=== PATIENT | male | born 1990 | race Caucasian/White ===

== ENCOUNTER 2020-11-03 07:11 | Outpatient (REF) | payer BC, SELFPAY ==
[2020-11-04 09:18] LABS: SARS COV2 IgG Negative (Negative)
== END 2020-11-03 07:12 | disposition home or self-care (01) ==
LOC: HO.LAB 07:11
PROVIDERS: Visit Provider Physician Assistant
DX: Z20.828 Contact with and (suspected) exposure to other viral communicable diseases (principal)
CPT/HCPCS: 86769

== ENCOUNTER 2020-11-10 07:56 | Outpatient (REF) | payer BC, SELFPAY ==
[2020-11-10 08:54] LABS: Estimated Average Glucose 97 mg/dL
[2020-11-10 09:26] LABS: Alanine Aminotransferase 92 U/L (0-40); Albumin Level 4.4 g/dL (3.5-5.0); Alkaline Phosphatase 131 U/L (39-117); Anion Gap 13 (12-20); Aspartate Amino Transferase 44 U/L (5-37); Bilirubin Total 0.5 mg/dL (0.0-1.0); Blood Urea Nitrogen 12 mg/dL (9-16); Calcium 9.2 mg/dL (8.4-10.2); Carbon Dioxide 26 mmol/L (22-29); Chloride 103 mmol/L (96-108); Cholesterol 208 mg/dL; Estimated Glomerular Filt Rate > 60; Glucose Fasting 96 mg/dL (60-99); HDL Cholesterol 36 mg/dL; Potassium 4.3 mmol/l (3.3-5.1); Sodium 138 mmol/L (135-145); Total Protein 7.8 g/dL (6.5-8.0); Triglycerides 627 mg/dL
[2020-11-10 09:46] LABS: TSH reflex Free T4 2.74 mIU/mL (0.32-4.0)
== END 2020-11-10 07:57 | disposition home or self-care (01) ==
LOC: HO.LAB 07:56
PROVIDERS: PCP Physician Assistant; Visit Provider Physician Assistant
DX: E78.5 Hyperlipidemia, unspecified (principal)
CPT/HCPCS: 80053; 80061; 83036; 84443

== ENCOUNTER 2021-09-06 07:08 | Outpatient (REF) | payer BC, SELFPAY ==
[2021-09-06 08:01] LABS: Hematocrit 46.9 % (42-52); Hemoglobin 15.5 g/dl (14.0-18.0); Mean Corpuscular Hemoglobin 27.5 pg (27.0-33.0); Mean Corpuscular Volume 83.2 fL (80-98); Mean Platelet Volume 8.9 fL (9.4-12.4); Platelet Count 353 X10*3/uL (160-400); Red Blood Count 5.64 X10*6/uL (4.60-5.80); Red Cell Distribution Width 12.9 % (11.0-16.0); White Blood Count 8.9 X10*3/uL (4.8-10.8)
[2021-09-06 08:25] LABS: Alanine Aminotransferase 25 U/L (0-40); Albumin Level 4.4 g/dL (3.5-5.0); Alkaline Phosphatase 91 U/L (39-117); Aspartate Amino Transferase 20 U/L (5-37); Bilirubin Direct 0.2 mg/dL (0.0-0.5); Bilirubin Total 0.4 mg/dL (0.0-1.0); Cholesterol 218 mg/dL; HDL Cholesterol 34 mg/dL; LDL Cholesterol Calculated 130 mg/dl; Total Protein 7.7 g/dL (6.5-8.0); Triglycerides 272 mg/dL
[2021-09-06 08:35] LABS: Estimated Average Glucose 94 mg/dL; Hemoglobin A1c % 4.9 %
[2021-09-06 08:49] LABS: TSH reflex Free T4 1.44 uIU/mL (0.32-4.0)
== END 2021-09-06 07:09 | disposition home or self-care (01) ==
LOC: HO.LAB 07:08
PROVIDERS: PCP Physician Assistant; Visit Provider Physician Assistant
DX: E78.1 Pure hyperglyceridemia (principal); R74.8 Abnormal levels of other serum enzymes; I10 Essential (primary) hypertension
CPT/HCPCS: 36415; 80061; 80076; 83036; 84443; 85027

== ENCOUNTER 2025-07-18 07:24 | Outpatient (REF) | payer BC, SELFPAY ==
--- OUTSIDE RECORDS SUMMARY | 2025-07-18 07:27 | XMS_ITS | Clinical Summary ---
Author Organization [facility] Address [address] [place], [place] [id number] Phone Care Team Providers Care Senior Financial Reporting Analyst Name Role Phone Kurtis Vazquez MD Primary Care Provider [phone] Social History Tobacco Use Types Packs/Day Years Used Date Smoking Tobacco: Never Assessed Sex and Gender Information Value Date Recorded Sex Assigned at Not on file Legal Sex Male 9:53 AM EST Gender Identity Not on file Sexual Orientation Not on file Plan of Treatment Not on file Medical Devices Not on file Insurance [address] [place], [place] [id number] [place] [address] HMO POS [place] [address] [place] [address] [place] [address] [place] [address] [place] [address] [place] [address] [place] [place] [address] [place] [address] HMO [facility] Care Teams Senior Financial Reporting Analyst Relationship Specialty Start Date End Date Kurtis Vazquez MD PCP - General Internal Medicine 12/21/17 Additional Source Comments The information contained in this document represents components of the legal health record. It is not the complete legal health record.[facility]
--- OUTSIDE RECORDS SUMMARY | 2025-07-18 07:27 | XMS_ITS | Encounter Summary ---
Author Organization [facility] Address [address] [place] [address] Phone Care Team Providers Care Maintenance Groundman Name Role Phone Saima Lindsay MD Primary Care Provider [phone] Encounter Details Date Type Department Care Team (Late st Contact Info) Description 06/29/2017 Conversion Encounter [facility] [address] [place] [address] Social History Tobacco Use Types Packs/Day Years Used Date Smoking Tobacco: Never Assessed Sex and Gender Information Value Date Recorded Sex Assigned at Not on file Legal Sex Male 4:26 PM EDT Gender Identity Not on file Sexual Orientation Not on file documented as of this encounter Plan of Treatment Not on file documented as of this encounter Visit Diagnoses Not on filedocumented in this encounter Care Teams Maintenance Groundman Relationship Specialty Start Date End Date Saima Lindsay MD [address] [place] [address] PCP - General 06/23/17 documented as of this encounter
--- OUTSIDE RECORDS SUMMARY | 2025-07-18 07:27 | XMS_ITS | Encounter Summary ---
Author Organization [facility] Address [address] [facility] [address] [place] [address] Phone Care Team Providers Care Correction Officer Name Role Phone Kurtis Vazquez MD Primary Care Provider [phone] Encounter Details Date Type Department Care Team (Late st Contact Info) Description 12/21/2017 Ancillary Orders [facility], X-Ray - [address] [place] [address] Riri Montejo, WILBERT [address] [facility] [address] [place] [address] [email or web address] Physical exam Social History Tobacco Use Types Packs/Day Years Used Date Smoking Tobacco: Never Assessed Sex and Gender Information Value Date Recorded Sex Assigned at Not on file Legal Sex Male 9:53 AM EST Gender Identity Not on file Sexual Orientation Not on file documented as of this encounter Plan of Treatment Not on file documented as of this encounter Results * XR CHEST PA AND LATERAL 2 VIEWS (12/21/2017 10:09 AM EST) Anatomical Region Laterality Modality Chest Radiographic Guillermina ging 12/21/2017 10:1 2 AM EST Impressions 12/21/2017 10:14 AM EST No acute chest disease. POS - [id number] Narrative 12/21/2017 10:14 AM EST HISTORY: As above. COMPARISON: None. CHEST RADIOGRAPH FINDINGS: 2 views obtained. Heart and mediastinum are normal. Lungs are clear. Mild upper thoracic scoliosis. No acute soft tissue findings. Procedure Note David Laboy MD - 12/21/2017 HISTORY: As above. COMPARISON: None. CHEST RADIOGRAPH FINDINGS: 2 views obtained. Heart and mediastinum are normal. Lungs are clear.Mild upper thoracic scoliosis. No acute soft tissue findings. IMPRESSION: No acute chest disease. POS - [id number] Riri Montejo WORKERS COMPENSATION CONSULTANT IMG XR CHEST Final Result documented in this encounter Visit Diagnoses Diagnosis Physical exam Unspecified general medical examination Physical exam Unspecified general medical examination documented in this encounter Care Teams Correction Officer Relationship Specialty Start Date End Date Kurtis Vazquez MD PCP - General Internal Medicine 12/21/17 documented as of this encounter Additional Source Comments The information contained in this document represents components of the legal health record. It is not the complete legal health record.[facility]
--- OUTSIDE RECORDS SUMMARY | 2025-07-18 07:27 | XMS_ITS | Clinical Summary ---
Author Organization [facility] Address [address] [place] [id number] Phone Care Team Providers Care Hand Riveter Name Role Phone Saima Lindsay MD Primary Care Provider [phone] Immunizations Immunization Administration Dates Next Due DTP 05/12/1993, 9,1988,1987,1988 Hep B, ped/adol 08/30/2000,06/06/2000,11/10/1999 Hib (PRP-T) 01/09/1990 IPV 05/12/1993, 9,1988,1987 MMR 11/10/1999,11/11/1989 Td (adult) (Tenivac), 5 Lf t etanus toxoid, PF, adsorbed 11/10/1999 Tdap 07/29/2008 Social History Tobacco Use Types Packs/Day Years Used Date Smoking Tobacco: Never Assessed Sex and Gender Information Value Date Recorded Sex Assigned at Not on file Legal Sex Male 4:26 PM EDT Gender Identity Not on file Sexual Orientation Not on file Plan of Treatment Health Maintenance Due Date Last Done Comments Varicella Vaccines (1 of 2 - 13+ 2-dose series) 2001 HPV Vaccines (1 - 3-dose SCDM series) 2015 DTaP,Tdap,and Td Vaccines (7 - Td or Tdap) 07/29/2018 07/29/2008, 11/10/1999, 05/12/1993, Additional history exists Influenza Vaccines (#1) 2025 COVID-19 Vaccine ( season) 2025 HIB Vaccines Completed 01/09/1990 IPV Vaccines Completed 05/12/1993, 10/15, 1988, Additional history exists MMR Vaccines Completed 11/10/1999, 11/11/1989 Hepatitis B Vaccines Completed 08/30/2000, 06/06/2000, 11/10/1999 Hepatitis A Vaccines Aged Out No long er eligible based on patient's age to complete this topic Men B Vaccine Aged Out No longer elig ible based on patient's age to complete this topic Meningococcal Vaccine Aged Out No [place] [facility] eligible based on patient's age to complete this topic Pneumococcal Vaccine Aged Out No long er eligible based on patient's age to complete this topic Care Teams Hand Riveter Relationship Specialty Start Date End Date Saima Lindsay MD [address] [facility] [place] [address] PCP - General 06/23/17
--- OUTSIDE RECORDS SUMMARY | 2025-07-18 07:27 | XMS_ITS | Patient Health Record ---
Author Organization [facility] [place] [place] Address [address] [place] [address] Care Team Providers Care Freight Loader Name Role Phone Kurtis Vazquez MD Primary Care Provider Unavaila ble Black, Kimberly Unavailable [phone] Reason For Referral No Information Problems Problem Type SNOMED Code ICD Code Onset Dates Problem Status W/U Status Risk Notes Problem Pain in limb (80187040) Pain in Limb (729.5) Active confirmed Problem Paronychia (48224316) Paronychia (681.11) Active confirmed Problem Abscess /Cellulitis (682.7) Active confirmed Plan Of Treatment Pending Test Test Name Order Date 60578 I&D ABSCESS- SIMPLE,SINGLE 012 51622 I&D ABSCESS- SIMPLE,SINGLE 012 Insurance Providers Payer Name Payer Address Payer Phone Subscriber Number Group Number Insured Name Patient Relationship to Insured Coverage Start Date Coverage End Date [facility] [id number] [place] [address] [id number] Dontae Pina Self - patient is the insured Medical (General) History Medical History History ICD Code chicken pox
[2025-07-18 08:17] LABS: Hematocrit 43.8 % (42.0-52.0); Hemoglobin 15.3 g/dl (14.0-18.0); Hemoglobin A1C 123.7948 umol/L; Imm Gran Abs Auto 0.04 X10*3/uL (0.00-0.03); Imm Gran Pct Auto 0.4 % (0.0-0.4); Lymphocytes Absolute Auto 2.2 X10*3/uL (1.2-4.9); MANUAL DIFF FLAG SCAN; Mean Corpuscular HGB Conc 34.9 g/dl (31.0-36.0); Mean Corpuscular Hemoglobin 28.1 pg (27.0-33.0); Mean Corpuscular Volume 80.4 fL (80.0-98.0); NRBC Abs Auto 0.000 X10*3/uL (0.0-0.012); NRBC Pct Auto 0.0 /100WBC (0.0-0.2); PLT CLUMP 1; Red Blood Count 5.45 X10*6/uL (4.60-5.80); SCAN SMEAR FLAG 1; Total Hemoglobin (HGBA1C) 4006.7105 umol/L
[2025-07-18 08:18] LABS: White Blood Count 9.1 X10*3/uL (4.8-10.8)
[2025-07-18 08:42] LABS: Alanine Aminotransferase 25 U/L (0-40); Albumin Level 4.6 g/dL (3.5-5.0); Alkaline Phosphatase 91 U/L (39-117); Anion Gap 11 (12-20); Aspartate Amino Transferase 31 U/L (5-37); Blood Urea Nitrogen 11 mg/dL (9-16); Calcium 9.2 mg/dL (8.4-10.2); Carbon Dioxide 26 mmol/L (22-29); Chloride 108 mmol/L (96-108); Cholesterol 240 mg/dL (<200); Estimated Glomerular Filt Rate > 60; HDL Cholesterol 40 mg/dL (>40); Platelet Count 319 X10*3/uL (160-400); Potassium 4.0 mmol/L (3.3-5.1); Sodium 141 mmol/L (135-145); Total Protein 7.7 g/dL (6.5-8.0); Triglycerides 229 mg/dL (<150)
== END 2025-07-18 07:25 | disposition home or self-care (01) ==
LOC: HO.LAB 07:24
PROVIDERS: PCP Internal Medicine; Visit Provider Internal Medicine
DX: E78.2 Mixed hyperlipidemia (principal); E66.09 Other obesity due to excess calories; Z68.39 Body mass index [BMI] 39.0-39.9, adult; F41.9 Anxiety disorder, unspecified; R74.8 Abnormal levels of other serum enzymes; R35.89 Other polyuria; Z13.0 Encounter for screening for diseases of the blood and blood-forming organs and certain disorders involving the immune mechanism; Z13.1 Encounter for screening for diabetes mellitus
CPT/HCPCS: 36415; 80053; 80061; 83036; 84443; 85025